=== PATIENT | male | born 2000 ===

== ENCOUNTER 2023-08-24 09:48 | Emergency (ER) | payer OTHER ==
[2023-08-24 10:03] VITALS: BP 131/79; O2SAT 97
--- NOTE | 2023-08-24 10:18 | ED Physician Documentation ---
PD HPI HEENT - Stated complaint Stated Complaint: UVULA SWOLLEN - Chief complaint Chief Complaint: Heent - History obtained from History obtained from: Patient - History of Present Illness Timing - onset: Today Timing - duration: Hours Timing - details: Abrupt onset, Still present Worsens: Swalllowing Associated symptoms: No: Fever, Congestion, Facial swelling, Cough Similar symptoms before: No diagnosis (had it prior in the past and treated for infection with antibiotic. Not on BP meds, no new med recently, no unusual foods.) Review of Systems Constitutional: denies: Fever, Chills Nose: denies: Rhinorrhea / runny nose, Congestion Throat: reports: Sore throat (just today) Respiratory: denies: Cough Skin: denies: Rash PD PAST MEDICAL HISTORY - Past Medical History Past Medical History: Yes Psych: Depression, Anxiety - Past Surgical History Past Surgical History: No - Present Medications Home Medications: Ambulatory Orders Medication Instructions Recorded Confirmed Escitalopram Oxalate 20 mg PO DAILY 07/26/22 08/24/23 Amoxicillin 500 mg PO TID #15 cap 08/24/23 Cetirizine [ZyrTEC] 10 mg PO BID #15 tablet 08/24/23 dexAMETHasone [Decadron] 4 mg PO DAILY #5 tablet 08/24/23 - Allergies Allergies/Adverse Reactions: Allergies Allergy/AdvReac Type Severity Reaction Status Date / Time No Known Drug Allergies Allergy Verified 08/24/23 09:53 - Social History Does the pt smoke?: No Smoking Status: Never smoker Does the pt drink ETOH?: Yes Does the pt have substance abuse?: No - Immunizations Immunizations are current?: Yes - POLST Patient has POLST: No PD ED PE NORMAL - Vitals Vital signs reviewed: Yes - General General: Alert and oriented X 3, No acute distress, Well developed/nourished - HEENT HEENT: Ears normal, Other (normal phonation and breathing. ). No: Pharynx benign (tonsils appear okay. Uvula with redness and swelling. Soft palatte is normal. ) - Neck Neck: Supple, no meningeal sign, No adenopathy - Cardiac Cardiac: RRR, No murmur - Respiratory Respiratory: Clear bilaterally - Derm Derm: Normal color, Warm and dry, No rash Results - Vitals Vitals: Oxygen O2 Source Room air PD Medical Decision Making - ED course Complexity details: considered differential (abtupt would likely seem more allergic or irritant. But no obvious cause, so still consider infectious. Give abx and steroid as well as antihistamine to cover eventualities. ), d/w patient Departure - Departure Disposition: 01 Home, Self Care Clinical Impression: Uvulitis Condition: Stable Record reviewed to determine appropriate education?: Yes Prescriptions: Amoxicillin 500 mg PO TID #15 cap dexAMETHasone [Decadron] 4 mg PO DAILY #5 tablet Cetirizine [ZyrTEC] 10 mg PO BID #15 tablet Comments: Swelling of the uvula can be infectious so amoxicillin can make sense. However does not obviously look infected and other considerations would be allergy related or just irritation with inflammation. As such I would also suggest you take Decadron steroid for 5 days and cetirizine antihistamine twice daily for the next 5 to 7 days. Between these medications that should cover the bases of infection, allergy, irritation/inflammation. Recheck if not improving well over the next couple of days and resolved by 2 to 3 days. Return if worse or other symptoms develop. I sent your prescriptions to [facility] pharmacy. Forms: PCP List Discharge Date/Time: 08/24/23 10:44
[2023-08-24] MEDS: dexAMETHasone 4 MG TABLET PO STA (10:41)
[2023-08-24] MEDS: AMOXICILLIN 250 MG CAPSULE PO STA (10:41)
[2023-08-24] MEDS: CETIRIZINE 10 MG TABLET PO STA (10:41)
== END 2023-08-24 10:44 | disposition home or self-care (01) ==
LOC: ED 09:48
DX: K12.2 Cellulitis and abscess of mouth (principal)
CPT/HCPCS: 99282; 99283; A9270; J8540

== ENCOUNTER 2023-11-17 21:48 | Emergency (ER) | payer OTHER ==
[2023-11-17 22:10] VITALS: O2SAT 96
[2023-11-17 23:49] LABS: RAPID STREP SCREEN Negative (Negative)
--- NOTE | 2023-11-17 23:52 | ED Physician Documentation ---
PD HPI HEENT - Stated complaint Stated Complaint: THROAT PX - Chief complaint Chief Complaint: Heent - History obtained from History obtained from: Patient - Additional information Additional information: Patient is a 23-year-old male presenting for evaluation of sore throat that has been present for 1 week. Patient states just prior to that he had tested positive for COVID and has had a sore throat since. He was seen at the [facility] a few days ago with a negative strep test. He has been taking acetaminophen and ibuprofen but still continues to have discomfort thus presented to the ER. No vomiting or diarrhea. No fever. Review of Systems Constitutional: denies: Fever Throat: reports: Sore throat Cardiac: denies: Chest pain / pressure Respiratory: denies: Dyspnea PD PAST MEDICAL HISTORY - Past Medical History Cardiovascular: None Respiratory: None Neuro: None Endocrine/Autoimmune: None GI: None : None HEENT: None Psych: Depression, Anxiety Musculoskeletal: None Derm: None - Past Surgical History Past Surgical History: No - Present Medications Home Medications: Ambulatory Orders Medication Instructions Recorded Confirmed Escitalopram Oxalate 20 mg PO DAILY 07/26/22 08/24/23 Amoxicillin 500 mg PO TID #15 cap 08/24/23 Cetirizine [ZyrTEC] 10 mg PO BID #15 tablet 08/24/23 dexAMETHasone [Decadron] 4 mg PO DAILY #5 tablet 08/24/23 - Allergies Allergies/Adverse Reactions: Allergies Allergy/AdvReac Type Severity Reaction Status Date / Time No Known Drug Allergies Allergy Verified 11/17/23 22:03 - Social History Does the pt smoke?: No Smoking Status: Never smoker Does the pt drink ETOH?: Yes Does the pt have substance abuse?: No - Immunizations Immunizations are current?: Yes - POLST Patient has POLST: No PD ED PE NORMAL - General General: Alert and oriented X 3, No acute distress, Well developed/nourished - HEENT HEENT: Atraumatic, Moist mucous membranes, Pharynx benign, Other (No tonsillar exudate or significant swelling, mild posterior pharyngeal erythema) - Neck Neck: Supple, no meningeal sign - Cardiac Cardiac: RRR - Respiratory Respiratory: No respiratory distress, Clear bilaterally - Derm Derm: Warm and dry - Neuro Neuro: Normal speech Results - Vitals Vitals: Vital Signs - 24 hr 11/17/23 11/18/23 21:58 00:04 Temperature 36.7 C 36.5 C Heart Rate 104 H 88 Respiratory 18 16 Rate Blood Pressure 152/87 H 130/80 O2 Saturation 96 96 Oxygen O2 Source Room air - Labs Labs: Laboratory Tests 11/17/23 23:37 Group A Strep Rapid Negative PD Medical Decision Making - ED course Complexity details: reviewed results, d/w patient ED course: Patient presenting for evaluation of sore throat that has been present for 1 week. A strep test is negative. Vital signs are stable and he is well- appearing with no signs of deep space infection or abscess. Patient given a dose of Decadron instructed on continued supportive care. Advised on concerning symptoms to return for. Departure - Departure Disposition: 01 Home, Self Care Clinical Impression: Pharyngitis Condition: Stable Instructions: ED Pharyngitis Viral Comments: Your strep test is negative. We will send this for culture. I have given you a dose of a long-acting steroid called Decadron which should help with the inflammation and discomfort. Continue with staying hydrated as well as acetaminophen or ibuprofen as needed for pain. Return to the ER with worsening symptoms. Forms: PCP List Discharge Date/Time: 11/18/23 00:04
[2023-11-18] MEDS: CHERRY SYRUP 10 ML UDC PO ONE (00:01)
[2023-11-18] MEDS: DEXAMETHASONE 10 MG/ML VIAL PO STA (00:01)
[2023-11-18 00:07] VITALS: BP 130/80
== END 2023-11-18 00:04 | disposition home or self-care (01) ==
LOC: ED 21:48
DX: J02.9 Acute pharyngitis, unspecified (principal)
CPT/HCPCS: 87070; 87430; 99283; A9270